=== PATIENT | male | born 1995 | race African-American/Black ===

== ENCOUNTER 2017-11-18 23:11 | Emergency (ER) | payer SELFPAY ==
[~2017-11-18] VITALS: Ht 170.2 cm; Wt 65.0 kg
[2017-11-18 23:18] VITALS: BP 135/66; PULSE 102; RESP 16; TEMP 98.6; O2SAT 98
[2017-11-18] MEDS ORDERED: IBUP-232 PO (23:22)
[2017-11-18] MEDS ORDERED: AUGM875T3 PO (23:22)
[2017-11-18] MEDS ORDERED: AMOXICILLIN/CLAVULANATE K 875 MG TAB PO ONE (23:30)
[2017-11-18] MEDS ORDERED: ACETAMINOPHEN/HYDROcodone 325 MG/5 MG TAB PO ONE (23:30)
--- NOTE | 2017-11-18 23:32 | PD ---
HPI Chief Complaint: Medical clearance Time Seen by Provider: 23:15 Travel History International Travel<30 days: No Contact w/Intl Traveler<30days: No Traveled to known affect area: No History of Present Illness HPI 22-year-old black male presents emergency department in police custody for medical clearance to go to nursing home. Patient was bitten by the police canine in the left arm, left flank, and left hip. The patient is up-to-date with immunizations. Pain is mild. He denies any numbness, tingling or weakness. No injury to his head, neck or back. Exacerbated by resisting arrest. No alleviating factors. PFSH Past Medical History Medical History: Denies Significant Hx Tetanus Vaccination: < 5 Years Past Surgical History Surgical History: No Previous Surgery Social History Alcohol Use: No Tobacco Use: No Substance Use: No Allergies-Medications (Allergen,Severity, Reaction): Coded Allergies: No Known Allergies (Unverified , 11/18/17) Reported Meds & Prescriptions Reported Meds & Active Scripts Active No Active Prescriptions or Reported Medications Review of Systems General / Constitutional: No: Fever Eyes: No: Visual changes HENT: No: Headaches, Neck Stiffness, Neck Pain Cardiovascular: No: Chest Pain or Discomfort Respiratory: No: Shortness of Breath Gastrointestinal: No: Nausea, Vomiting, Abdominal Pain Genitourinary: No: Dysuria Musculoskeletal: Positive: Myalgias, Pain, No: Limited ROM, Weakness Skin: No Rash Neurologic: No: Weakness, Focal Abnormalities, Headache, Paresthesia Psychiatric: No: Depression Endocrine: No: Polydipsia Hematologic/Lymphatic: No: Easy Bruising Physical Exam Narrative GENERAL: Well-developed, well-nourished in no apparent distress. Nontoxic appearing. HEAD: Normocephalic, atraumatic. EYES: Pupils equal round and reactive. Extraocular motions intact. No scleral icterus. No injection or drainage. ENT: Nose clear. Throat without erythema, tonsillar hypertrophy or exudate. Uvula midline. Airway patent. NECK: Trachea midline. Supple, nontender, moves head freely. No central bony tenderness or spasm. CARDIOVASCULAR: Regular rate and rhythm without murmurs, gallops, or rubs. RESPIRATORY: Clear to auscultation. Breath sounds equal bilaterally. No wheezes , rales, or rhonchi. GASTROINTESTINAL: Abdomen soft, non-tender, nondistended. No hepato-splenomegaly , or palpable masses. No guarding. EXTREMITIES: No clubbing, cyanosis, or edema. No joint tenderness. Patient has superficial abrasions and tooth punctures to the left lower tricep and proximal forearm area. There is some superficial dirt over the forearm but there is no deep injury. No joint, tendon or bony injury. No pain in the shoulder, elbow, wrist or hand. He has intact sensation with good distal pulses. The right upper extremity is unremarkable. The left lower extremity reveals superficial abrasions and tooth puncture wounds to the left hip and thigh region laterally. Once again no deep structure injury. No tendon, nerve or bony injury. The wounds appeared clean. There is no bony tenderness in the hip, knee, ankle or foot. Neurovascular intact. The right lower extremity is unremarkable. BACK: Nontender without deformity. Patient has multiple tooth abrasions and punctures to the left flank. There is no deep structure injury. These wounds appear clean NEUROLOGICAL: Awake, alert and oriented x 3 .Cranial nerves grossly intact. Motor and sensory grossly within normal limits. Normal speech. Data Data Orders Orders Acetamin-Hydrocod 325-5 Mg (Bartow 5-325 (11/18/17 23:30) Amoxicil-Clavulanate (Augmentin) (11/18/17 23:30) MDM Medical Decision Making Medical Screen Exam Complete: Yes Emergency Medical Condition: Yes Medical Record Reviewed: Yes Differential Diagnosis MDM: High Differential diagnoses: Fracture, sprain, strain, dislocation, contusion, neurovascular injury, animal bite Narrative Course Patient's wounds are inconsistent with any deep structure injury, nerve, vascular bony injury. Patient's wounds are cleansed by the nursing staff. He is given Augmentin 875 mg p.o. and Bartow 5 mg p.o. His wounds are not suturable. This is dog bites, medical clearance for nursing home Diagnosis Primary Impression: Dog bite of arm Qualified Codes: S41.152A - Open bite of left upper arm, initial encounter; W54.0XXA - Bitten by dog, initial encounter Additional Impressions: Dog bite of left flank Dog bite of left buttock Qualified Codes: S31.825A - Open bite of left buttock, initial encounter; W54.0XXA - Bitten by dog, initial encounter Medical clearance for incarceration Additional Instructions: Rest. Elevation. keep clean and dry. Augmentin Daily wound care with soap, water and Neosporin. Motrin for pain . Recheck with a primary care doctor in 2 days. Return to the ER for any problems. Med/Other Pt SpecificInfo: Prescription(s) given Scripts Amoxicillin-Clavulanate (Augmentin) 875-125 Mg Tab 1 TAB PO BID for Infection for 10 Days, #20 TAB 0 Refills Prov: Charity Gage DO 11/18/17 Ibuprofen (Ibuprofen) 600 Mg Tab 600 MG PO Q6H Y for Pain/Inflammation, #40 TAB 0 Refills Prov: Charity Gage DO 11/18/17 Disposition: 01 DISCHARGE HOME Condition: Stable Prabhakar Garcia November 18, 2017 23:32
== END 2017-11-19 00:26 | disposition home or self-care (01) ==
LOC: NEPD 23:11
DX: S41.152A Open bite of left upper arm, initial encounter (principal); S31.825A Open bite of left buttock, initial encounter; S31.154A Open bite of abdominal wall, left lower quadrant without penetration into peritoneal cavity, initial encounter; W54.0XXA Bitten by dog, initial encounter; Y35.893A Legal intervention involving other specified means, suspect injured, initial encounter
CPT/HCPCS: 99283